=== PATIENT | female | born 1975 | race Caucasian/White ===

== ENCOUNTER 2019-03-23 15:50 | Emergency (ER) | payer OTHER ==
[~2019-03-23] VITALS: Ht 162.6 cm; Wt 58.1 kg
== END 2019-03-23 19:49 | disposition home or self-care (01) ==
LOC: ER 15:50
DX: R10.2 Pelvic and perineal pain (principal)

== ENCOUNTER 2020-02-10 05:00 | Outpatient (CLI) | payer OTHER | END 2020-02-10 15:00 | disposition home or self-care (01) | LOC: PPH VACUNA 05:00 | DX: Z23 Encounter for immunization (principal) ==

== ENCOUNTER 2020-02-11 08:52 | Outpatient (CLI) | payer OTHER | END 2020-02-11 09:03 | disposition home or self-care (01) | LOC: MAMO-SONO 08:52 | PROVIDERS: ATTEND Internal Medicine | DX: Z12.31 Encounter for screening mammogram for malignant neoplasm of breast (principal) ==

== ENCOUNTER → 2020-02-16 | Outpatient (CLI) | payer OTHER | END | disposition home or self-care (01) | LOC: RAD 13:23 | PROVIDERS: ATTEND General Practice | DX: R06.02 Shortness of breath (principal) ==

== ENCOUNTER 2020-05-05 09:12 | Outpatient (CLI) | payer OTHER ==
[2020-05-05] MEDS ORDERED: TESSALON PERLE100 M1 PO (13:25)
== END 2020-05-05 10:11 | disposition home or self-care (01) ==
LOC: LAB 09:12
PROVIDERS: ATTEND Internal Medicine
DX: U07.1 COVID-19 (principal)

== ENCOUNTER 2020-12-10 09:02 | Outpatient (CLI) | payer OTHER ==
[~2020-12-10 09:02] MED LIST: TESSALON PERLE100 M1 PO
== END 2020-12-10 09:10 | disposition home or self-care (01) ==
LOC: SONOGRAMA 09:02
DX: K82.8 Other specified diseases of gallbladder (principal); R10.13 Epigastric pain

== ENCOUNTER 2021-01-18 10:18 | Outpatient (CLI) | payer OTHER | END 2021-01-18 15:00 | disposition home or self-care (01) | LOC: LAB 10:18 | PROVIDERS: ATTEND Emergency Medicine Pediatric Emergency Medicine | DX: Z03.818 Encounter for observation for suspected exposure to other biological agents ruled out (principal) ==

== ENCOUNTER 2021-05-09 09:00 | Outpatient (CLI) | payer OTHER | END 2021-05-09 09:15 | disposition home or self-care (01) | LOC: PPH VACUNA 09:00 | PROVIDERS: ATTEND Emergency Medicine Pediatric Emergency Medicine | DX: Z23 Encounter for immunization (principal) ==

== ENCOUNTER 2021-05-30 12:10 | Outpatient (CLI) | payer OTHER | END 2021-05-30 12:11 | disposition home or self-care (01) | LOC: LAB 12:10 | PROVIDERS: ATTEND Internal Medicine | DX: N39.0 Urinary tract infection, site not specified (principal) ==

== ENCOUNTER 2021-06-30 13:38 | Outpatient (CLI) | payer OTHER | END 2021-06-30 14:01 | disposition home or self-care (01) | LOC: MAMO-SONO 13:38 | DX: D25.9 Leiomyoma of uterus, unspecified (principal); N60.01 Solitary cyst of right breast; N60.02 Solitary cyst of left breast; Z12.31 Encounter for screening mammogram for malignant neoplasm of breast ==